=== PATIENT | male | born 1965 | race Caucasian/White ===

== ENCOUNTER → 2017-03-29 | Outpatient (CLI) | payer MEDICARE ==
[~2017-03-29] MED LIST: ACETAMINOPHEN &1 TA1 PO; ALPRAZOLAM2 MG PO; FLEXERIL10 MG PO; IBU-8800 MG PO; LEVOTHYROXINE0.05 M2 PO; PHENERGAN12.5 M3 PO; TIZANIDINE HCL 44 MG PO; [UNRECOGNIZED DRUG - OTHER] PO
== END ==
LOC: LAB 15:58
DX: E03.9 Hypothyroidism, unspecified (principal)

== ENCOUNTER → 2017-05-13 | Outpatient (CLI) | payer MEDICARE ==
[2017-05-13 20:31] LABS: AMPHETAMINES/METAMPHETAMINES NEGATIVE ng/mL (<1000)
== END ==
LOC: LAB 14:14
PROVIDERS: Emergency Medicine
DX: Z79.899 Other long term (current) drug therapy (principal)